=== PATIENT | female | born 1990 | race Caucasian/White ===

== ENCOUNTER 2016-06-21 16:11 | Emergency (ER) | payer OTHER ==
[2016-06-21 16:17] VITALS: BP 122/65; PULSE 79; TEMP 98.2; BMI 28.3
[2016-06-21 19:28] LABS: URINE APPEARANCE CLEAR; URINE BILIRUBIN NEGATIVE (NEGATIVE); URINE BLOOD NEGATIVE (NEGATIVE); URINE COLOR YELLOW; URINE GLUCOSE (UA) NEGATIVE (NEGATIVE); URINE KETONE NEGATIVE (NEGATIVE); URINE LEUK ESTERASE NEGATIVE (NEGATIVE); URINE NITRITE NEGATIVE (NEGATIVE); URINE PROTEIN NEGATIVE (NEGATIVE); URINE UROBILINOGEN NEGATIVE E.U./dl (0.2-1.0)
== END 2016-06-21 18:00 | disposition home or self-care (01) ==
LOC: JER 16:11
DX: O26.892 Other specified pregnancy related conditions, second trimester (principal); Z3A.22 22 weeks gestation of pregnancy
CPT/HCPCS: 81003; 99281-25

== ENCOUNTER 2016-09-09 17:02 | Emergency (ER) | payer OTHER ==
[2016-09-09 17:10] VITALS: BMI 34.1
[2016-09-09 17:40] VITALS: PULSE 88; TEMP 98.4
[2016-09-09 17:42] VITALS: BP 126/67
[2016-09-09 18:54] LABS: BASOPHIL 0.3 % (0-2.0); EOSINOPHIL 1.7 % (0-4.5); MCH 30.4 pg (25.7-33.7); MCHC 33.3 g/dl (32.0-36.0); MEAN CELL VOLUME 91.2 fl (80-96); MEAN PLT VOLUME 8.4 fl (7.5-11.1); PLATELET COUNT 223 K/MM3 (134-434); RDW 12.4 % (11.6-15.6); WHITE BLOOD COUNT 7.9 K/mm3 (4.0-10.0)
--- NOTE | 2016-09-09 18:58 | PDOC ---
History of Present Illness <Davey Blake - Last Filed: 09/09/16 18:58> - General History Source: Patient Exam Limitations: No Limitations - History of Present Illness Initial Comments: 09/09/16 18:58 The patient is a 26 year old female , 8 months , who arrives to the ED from L&D for RUQ pain. The patient explains that she has been experiencing worsening pain for the past week. She notes one episode of vomiting as well which was nonbloody and nonbilious. The patient states that she has been keeping a relatively healthy diet, eating mostly salads with grilled chicken. She denies any recent fevers, chills, diarrhea, constipation, melena, hematochezia, chest pain, shortness of breath, cough, or urinary symptoms. <Crissy Thurman - Last Filed: 09/09/16 18:58> <Suki Goodrich - Last Filed: 09/09/16 22:14> - General Chief Complaint: Labor Assessment Stated Complaint: PAIN UNDER BREAST Time Seen by Provider: 09/09/16 18:37 Past History - Past Medical History Other medical history: NONE - Psycho/Social/Smoking Cessation Hx Anxiety: No Suicidal Ideation: No Smoking Status: No Smoking History: Never smoked Number of Cigarettes Smoked Daily: 0 Hx Alcohol Use: No Drug/Substance Use Hx: No Substance Use Type: None <Davey Blake - Last Filed: 09/09/16 18:58> <Crissy Thurman - Last Filed: 09/09/16 18:58> <Suki Goodrich - Last Filed: 09/09/16 22:14> - Past Medical History Allergies/Adverse Reactions: Allergies Allergy/AdvReac Type Severity Reaction Status Date / Time No Known Allergies Allergy Verified 09/09/16 17:10 Home Medications: Ambulatory Orders Vit Calc,Iron,Folic [ Vitamins] 1 each PO DAILY 09/09/16 Review of Systems - Review of Systems Able to Perform ROS?: Yes Comments:: 09/09/16 18:58 GENERAL/CONSTITUTIONAL: No fever or chills. No weakness. HEAD, EYES, EARS, NOSE AND THROAT: No change in vision. No ear pain or discharge. No sore throat. CARDIOVASCULAR: No chest pain or shortness of breath. RESPIRATORY: No cough, wheezing, or hemoptysis. GASTROINTESTINAL: Present: RUQ pain, nausea, vomiting No diarrhea or constipation. GENITOURINARY: No dysuria, frequency, or change in urination. MUSCULOSKELETAL: No joint or muscle swelling or pain. No neck or back pain. SKIN: No rash NEUROLOGIC: No headache, vertigo, loss of consciousness, or change in strength/ sensation. ENDOCRINE: No increased thirst. No abnormal weight change. HEMATOLOGIC/LYMPHATIC: No anemia, easy bleeding, or history of blood clots. ALLERGIC/IMMUNOLOGIC: No hives or skin allergy. All Other Systems: Reviewed and Negative <Crissy Thurman - Last Filed: 09/09/16 18:58> *Physical Exam - Vital Signs Last Vital Signs Temp Pulse Resp BP Pulse Ox 98.4 F 88 20 126/67 99 09/09/16 17:35 09/09/16 17:35 09/09/16 17:35 09/09/16 17:35 09/09/16 17:06 <Davey Blake - Last Filed: 09/09/16 18:58> - Vital Signs Last Vital Signs Temp Pulse Resp BP Pulse Ox 98.4 F 88 20 126/67 99 09/09/16 17:35 09/09/16 17:35 09/09/16 17:35 09/09/16 17:35 09/09/16 17:06 - Physical Exam Comments: 09/09/16 18:59 GENERAL: Awake, alert, and fully oriented, in no acute distress HEAD: No signs of trauma EYES: PERRLA, EOMI, sclera anicteric, conjunctiva clear ENT: Auricles normal inspection, hearing grossly normal, nares patent, oropharynx clear without exudates. Moist mucosa NECK: Normal ROM, supple, no lymphadenopathy, JVD, or masses LUNGS: Breath sounds equal, clear to auscultation bilaterally. No wheezes, and no crackles HEART: Regular rate and rhythm, normal S1 and S2, no murmurs, rubs or gallops ABDOMEN: Positive Alicea's sign. Soft, nontender, normoactive bowel sounds. No guarding, no rebound. No masses EXTREMITIES: Normal range of motion, no edema. No clubbing or cyanosis. No cords, erythema, or tenderness NEUROLOGICAL: Cranial nerves II through XII grossly intact. Normal speech, normal gait SKIN: Warm, Dry, normal turgor, no rashes or lesions noted. <[email or web address] - Last Filed: 09/09/16 18:58> - Vital Signs Last Vital Signs Temp Pulse Resp BP Pulse Ox 98.4 F 88 20 126/67 99 09/09/16 17:35 09/09/16 17:35 09/09/16 17:35 09/09/16 17:35 09/09/16 17:06 <Suki Goodrich - Last Filed: 09/09/16 22:14> ED Treatment Course - LABORATORY CBC & Chemistry Diagram: 09/09/16 16:57 09/09/16 16:57 - RADIOLOGY Radiology Studies Ordered: Category Date Time Status GALLBLADDER US [US] Stat Ultrasound 09/09/16 18:32 Ordered <Davey Blake - Last Filed: 09/09/16 18:58> - LABORATORY CBC & Chemistry Diagram: 09/09/16 16:57 09/09/16 16:57 <Crissy Thurman - Last Filed: 09/09/16 18:58> - LABORATORY CBC & Chemistry Diagram: 09/09/16 16:57 09/09/16 16:57 - ADDITIONAL ORDERS Additional order review: Laboratory Results 09/09/16 09/09/16 09/09/16 19:10 16:57 16:57 INR 1.03 Sodium 139 Potassium 4.3 Chloride 106 Carbon Dioxide 25 Anion Gap 8 BUN 8 Creatinine 0.7 Creat Clearance w eGFR > 60 Random Glucose 93 Calcium 8.8 Total Bilirubin 0.6 AST 16 ALT 19 Alkaline Phosphatase 130 H Total Protein 6.5 Albumin 2.9 L Lipase 169 Urine Color Yellow Urine Appearance Slcloudy Urine pH 6.0 Ur Specific [place] 1.025 Urine Protein Negative Urine Glucose (UA) Negative Urine Ketones Negative Urine Blood Negative Urine Nitrite Negative Urine Bilirubin Negative Urine Urobilinogen Negative Ur Leukocyte Esterase Trace H Urine RBC 1 Urine WBC 6 Ur Epithelial Cells Few Urine Bacteria Rare Urine Mucus Rare Urine Yeast Rare 09/09/16 16:57 RBC 3.69 MCV 91.2 MCHC 33.3 RDW 12.4 MPV 8.4 Neutrophils % 67.0 Lymphocytes % 21.0 Monocytes % 10.0 Eosinophils % 1.7 Basophils % 0.3 <Suki Goodrich - Last Filed: 09/09/16 22:14> Medical Decision Making - Medical Decision Making 09/09/16 22:13 Patient Name: Iraida Sharp THIS IS A PRELIMINARY REPORT FROM [facility]. EXAM: GALLBLADDER US DATE OF SERVICE: 2016-09-09 19:18:41.0 IMAGES: 40 INDICATION: Biliary colic. COMPARISON: None Limited study due to body habitus and increased bowel gas. Patient is reported to be 34 weeks . Ultrasound not performed. Liver is normal sized and homogeneous. Normal main portal vein. Contracted gallbladder without gallstone or bile duct dilatation. Normal common bile duct measuring 3.4 mm diameter. Right kidney unremarkable. The head and the body of pancreas unremarkable. IVC is patent. No ascites. THIS DOCUMENT HAS BEEN ELECTRONICALLY SIGNED <Suki Goodrich - Last Filed: 09/09/16 22:14> *DC/Admit/Observation/Transfer - Attestations Physician Attestion: 09/09/16 18:58 I, Dr. Davey Blake, attest that this document has been prepared under my direction and personally reviewed by me in its entirety. I further attest, that it accurately reflects all work, treatment, procedures and medical decision -making performed by me. <Davey Blake - Last Filed: 09/09/16 18:58> - Attestations Scribe Attestion: 09/09/16 19:00 Documentation prepared by Crissy Thurman, acting as biomedical technician for Davey Blake DO. <Crissy Thurman - Last Filed: 09/09/16 18:58> - Discharge Dispostion Admit: No <Suki Goodrich - Last Filed: 09/09/16 22:14> Diagnosis at time of Disposition: Abdominal pain - Discharge Dispostion Disposition: HOME Condition at time of disposition: Stable - Patient Instructions Printed Discharge Instructions: DI for Abdominal Pain-Adult Additional Instructions: RETURN TO EMERGENCY DEPT. 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 IF YOU WISH TO TRANSFER CARE TO [facility], CALL FOR APPOINTMENT AND ARRANGE TO HAVE YOUR CHART SENT. TELEPHONE NUMBER IS [phone]
[2016-09-09 19:07] LABS: INR 1.03 (0.82-1.09); PROTHROMBIN TIME (PATIENT) 11.3 SEC (9.98-11.88)
[2016-09-09 19:22] LABS: ALBUMIN 2.9 g/dl (3.4-5.0); ALK PHOS 130 U/L (45-117); ANION GAP 8 (8-16); BILIRUBIN,TOTAL 0.6 mg/dL (0.2-1.0); CALCIUM 8.8 mg/dL (8.5-10.1); CO2 25 mmol/L (21-32); CREATININE 0.7 mg/dL (0.55-1.02); GLUCOSE,RANDOM 93 mg/dL (74-106); SGOT/AST 16 U/L (15-37); SGPT/ALT 19 U/L (12-78); TOT PROT 6.5 g/dl (6.4-8.2)
[2016-09-09 19:35] LABS: URINE APPEARANCE SLCLOUDY; URINE BILIRUBIN NEGATIVE (NEGATIVE); URINE BLOOD NEGATIVE (NEGATIVE); URINE COLOR YELLOW; URINE GLUCOSE (UA) NEGATIVE (NEGATIVE); URINE KETONE NEGATIVE (NEGATIVE); URINE NITRITE NEGATIVE (NEGATIVE); URINE PROTEIN NEGATIVE (NEGATIVE); URINE UROBILINOGEN NEGATIVE E.U./dl (0.2-1.0)
[2016-09-09 19:50] LABS: URINE LEUK ESTERASE TRACE (NEGATIVE)
[2016-09-09 19:57] LABS: URINE BACTERIA RARE /hpf (NONE SEEN); URINE MUCUS RARE; URINE RBC 1 /hpf (0-3); URINE WBC 6 /hpf (3-5); YEAST RARE
== END 2016-09-09 22:57 | disposition home or self-care (01) ==
LOC: JER 17:02
DX: O26.893 Other specified pregnancy related conditions, third trimester (principal); R10.11 Right upper quadrant pain; Z3A.34 34 weeks gestation of pregnancy
CPT/HCPCS: 36415; 76705-TC; 80053; 81003; 81015; 83690; 85025; 85610; 99282-25

== ENCOUNTER 2016-09-17 18:21 | Emergency (ER) | payer OTHER ==
[2016-09-17 18:28] VITALS: BMI 31.5
[2016-09-17 20:43] VITALS: BP 109/79; PULSE 93; TEMP 99.3
== END 2016-09-17 20:50 | disposition home or self-care (01) ==
LOC: JER 18:21
DX: O26.853 Spotting complicating pregnancy, third trimester (principal); Z3A.34 34 weeks gestation of pregnancy
CPT/HCPCS: 99281-25

== ENCOUNTER 2016-10-15 07:00 | Inpatient (IN) | payer OTHER ==
[2016-10-15 08:35] VITALS: BMI 36.1
[2016-10-15] MEDS ORDERED: DEXTROSE 5%-LACTATED RINGERS 1,000 ML IV ONE (09:00)
[2016-10-15 09:19] LABS: BASOPHIL 0.4 % (0-2.0); EOSINOPHIL 0.1 % (0-4.5); MCH 30.5 pg (25.7-33.7); MCHC 33.9 g/dl (32.0-36.0); MEAN CELL VOLUME 90.1 fl (80-96); NEUTROPHILS 63.1 % (42.8-82.8); PLATELET COUNT 213 K/MM3 (134-434); RDW 13.4 % (11.6-15.6); WHITE BLOOD COUNT 5.9 K/mm3 (4.0-10.0)
[2016-10-15 09:42] LABS: INR 0.95 (0.82-1.09); PROTHROMBIN TIME (PATIENT) 10.4 SEC (9.98-11.88)
[2016-10-15 09:45] LABS: ACTIVATED PTT 29.8 SECONDS (26.9-34.4)
[2016-10-15 09:53] LABS: ANION GAP 9 (8-16); CO2 23 mmol/L (21-32); CREATININE 0.6 mg/dL (0.55-1.02); GLUCOSE,RANDOM 71 mg/dL (74-106)
--- NOTE | 2016-10-15 14:50 | HP ---
Past Medical History - Primary Care Physician PCP:: Miguel Cee - Admission Chief Complaint: 38 weeks, prom, History of Present Illness: 26 yo g 2 p0100 edc by by rhonda 10/24/16 c/o rom since 6 am today, clear, no fever , no chills, mild cramps. no bleeding History Source: Patient Limitations to Obtaining History: No Limitations - Past Medical History ...: 2 ...Para: 1 ...Term: 0 ...: 0 ...Spon : 0 ...Induced : 0 ...Multiple Gestation: 0 ...LMP: 01/19/17 ...EDC by Dates: 10/26/16 ...EDC by [facility]: 10/24/16 Additional OB History: one spont ab - Past Surgical History Hx Myomectomy: No Hx Transabdominal Cerclage: No - Smoking History Smoking history: Never smoked Have you smoked in the past 12 months: No Aproximately how many cigarettes per day: 0 - Alcohol/Substance Use Hx Alcohol Use: No - Social History Usual Living Arrangement: Yes: With Spouse History of Recent Travel: No Home Medications - Allergies Allergies/Adverse Reactions: Allergies Allergy/AdvReac Type Severity Reaction Status Date / Time No Known Allergies Allergy Verified 10/15/16 08:16 - Home Medications Home Medications: Ambulatory Orders Vit Calc,Iron,Folic [ Vitamins] 1 each PO DAILY 09/09/16 Review of Systems - Review of Systems Constitutional: reports: No Symptoms Eyes: reports: No Symptoms HENT: reports: No Symptoms Neck: reports: No Symptoms Cardiovascular: reports: No Symptoms Respiratory: reports: No Symptoms Gastrointestinal: reports: No Symptoms Genitourinary: reports: No Symptoms Breasts: reports: No Symptoms Reported Musculoskeletal: reports: No Symptoms Integumentary: reports: No Symptoms Neurological: reports: No Symptoms Endocrine: reports: No Symptoms Hematology/Lymphatic: reports: No Symptoms Psychiatric: reports: No Symptoms Physical Exam - Maternity Vital Signs: Vital Signs Temperature 98.2 F 10/15/16 13:00 Pulse Rate 87 10/15/16 13:00 Respiratory Rate 20 10/15/16 13:00 Blood Pressure 115/61 10/15/16 13:00 O2 Sat by Pulse Oximetry (%) Constitutional: Yes: Well Nourished, No Distress, Calm Eyes: Yes: WNL, Conjunctiva Clear, EOM Intact HENT: Yes: WNL, Atraumatic, Normocephalic Neck: Yes: WNL, Supple, Trachea Midline Cardiovascular: Yes: WNL, Regular Rate and Rhythm Breast(s): Yes: WNL - Abdominal Exam/OB Fundal Height: 38 Number of Fetuses: Single Presentation: Vertex Contractions: Yes Regularity: Irregular Intensity: Moderate Monitor Mode: External Heart Rate Location: [facility] Category: I Accelerations: Uniform Decelerations: None - Vaginal Exam/OB Speculum Exam: Yes Dilatation (cm): 1 cm Effacement (%): 50 Amniotic Membrane Status: Ruptured Nitrazine Test: Positive Amniotic Fluid: Yes: Clear Station: -2 - Physical Exam Musculoskeletal: Yes: Back Pain Edema: LLE: Trace, RLE: Trace Deep Tendon Reflex Grade: Normal +2 - Labs Lab Results: CBC, BMP 10/15/16 08:40 10/15/16 08:40 Hemorrhage Risk Assessment - Risk Factors Risk Score: 0 Risk Level: Low Risk Problem List - Problems (1) with 38 completed weeks gestation Code(s): Z3A.38 - 38 WEEKS GESTATION OF (2) Ruptured, membranes, premature Code(s): O42.90 - ESTHELA ROM, 7TH0 BETW RUPT & ONST LABR, UNSP WEEKS OF GEST Qualifiers: PROM gestational age: full term Assessment/Plan admit, fhm, GBS negative, expectant management, appear starting labor spontaneous
--- NOTE | 2016-10-15 14:51 | PN ---
Progress Note (short form) - Note Progress Note: cx 1 to 2 cm 80 vx -2 mr, fhr cat 1, contraction q 3 min , moderate intensity Problem List - Problems (1) with 38 completed weeks gestation Code(s): Z3A.38 - 38 WEEKS GESTATION OF (2) Ruptured, membranes, premature Code(s): O42.90 - ESTHELA ROM, 7TH0 BETW RUPT & ONST LABR, UNSP WEEKS OF GEST Qualifiers: PROM gestational age: full term
[2016-10-15] MEDS ORDERED: PROMETHAZINE HCL 25 MG/1 ML VIAL IVPUSH ONE (15:56)
[2016-10-15] MEDS ORDERED: BUTORPHANOL TARTRATE 1 MG/ML VIAL IVPUSH PRN (15:56)
[2016-10-15] MEDS ORDERED: AMPICILLIN - 2 GM in SODIUM CHLORIDE 100 ML IVPB ONE (17:57)
[2016-10-15] MEDS ORDERED: ELECTROLYTE-148 SOLN 500 ML IV ONE ×2 (19:30→20:30)
[2016-10-15] MEDS ORDERED: AMPICILLIN - 1 GM in SODIUM CHLORIDE 100 ML IVPB SCH (20:00)
--- NOTE | 2016-10-15 21:00 | PN ---
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
[2016-10-15] MEDS ORDERED: BISACODYL 10 MG SUPP.RECT RC PRN (21:46)
[2016-10-15] MEDS ORDERED: BENZOCAINE 20% 57 GM BOTTLE TP PRN (21:46)
[2016-10-15] MEDS ORDERED: BENZOCAINE 28 GM HEMORRHOIDAL OINTMENT TP PRN (21:46)
[2016-10-15] MEDS ORDERED: WITCH HAZEL 50% (TUCKS) 40 PAD/JAR PAD TP PRN (21:46)
[2016-10-15] MEDS ORDERED: oxyCODONE HCL 5 MG TABLET PO PRN (21:46)
[2016-10-15] MEDS ORDERED: IBUPROFEN 600 MG TABLET (FP) PO PRN (21:46)
[2016-10-15] MEDS ORDERED: METHYLERGONOVINE MALEATE 0.2 MG/1 ML AMP IM PRN (21:46)
[2016-10-15] MEDS ORDERED: ACETAMINOPHEN 325 MG TABLET (FP) PO PRN (21:46)
[2016-10-15] MEDS ORDERED: D5W-LR W/ 20 UNITS OXYTOCIN 1,000 ML IV SCH (22:00)
[2016-10-15] MEDS: FERROUS SO4 325 MG TABLET (FP) PO SCH (23:30)
--- NOTE | 2016-10-16 06:00 | PN ---
Progress Note (short form) - Note Progress Note: ppd 1 doing well, no c/o no excess vaginal bleeding CBC, BMP 10/15/16 08:40 10/15/16 08:40 Last Vital Signs Temp Pulse Resp BP Pulse Ox 98.3 F 76 18 122/71 100 10/16/16 02:00 10/16/16 02:00 10/16/16 02:00 10/16/16 02:00 10/15/16 21:35 abdomen soft, no distension, no cva uterus firm, non tender lochia mild CBC, BMP 10/15/16 08:40 10/15/16 08:40 plan cbc today, ambualte d/c home in am Problem List - Problems (1) with 38 completed weeks gestation Code(s): Z3A.38 - 38 WEEKS GESTATION OF (2) Ruptured, membranes, premature Code(s): O42.90 - ESTHELA ROM, 7TH0 BETW RUPT & ONST LABR, UNSP WEEKS OF GEST Qualifiers: PROM gestational age: full term
[2016-10-16 07:33] LABS: BASOPHIL 0.1 % (0-2.0); MCH 30.6 pg (25.7-33.7); MCHC 34.3 g/dl (32.0-36.0); MEAN CELL VOLUME 89.2 fl (80-96); NEUTROPHILS 70.5 % (42.8-82.8); PLATELET COUNT 173 K/MM3 (134-434); RDW 13.2 % (11.6-15.6); WHITE BLOOD COUNT 9.2 K/mm3 (4.0-10.0)
[2016-10-16] MEDS: FERROUS SO4 325 MG TABLET (FP) PO SCH ×2 (09:21→21:45)
[2016-10-16] MEDS: PRENATAL VITAMINS W/ FOLIC ACID TABLET (FP) PO SCH (09:22)
[2016-10-16] MEDS ORDERED: SENNOSIDES/DOCUSATE COMBO (SENNA PLUS) TABLET (UD) PO PRN (22:00)
[2016-10-17 08:41] VITALS: BP 137/83; PULSE 93; TEMP 98
[2016-10-17] MEDS: PRENATAL VITAMINS W/ FOLIC ACID TABLET (FP) PO SCH (09:12)
[2016-10-17] MEDS: FERROUS SO4 325 MG TABLET (FP) PO SCH (09:12)
--- NOTE | 2016-10-17 09:37 | PN ---
Post Progress Note - Subjective Subjective: c/o cramps Post Day: 2 Type of Delivery: Vital Signs: Vital Signs Temperature 98 F 10/17/16 08:39 Pulse Rate 93 H 10/17/16 08:39 Respiratory Rate 20 10/17/16 08:39 Blood Pressure 137/83 10/17/16 08:39 O2 Sat by Pulse Oximetry (%) 100 10/15/16 21:35 Breast Exam: Yes: Soft. No: Engorged Uterus: Yes: Fundus Firm, Fundus below umbilicus, Non-tender Lochia: Yes: Rubra Lochia, amount: Moderate Extremities: Yes: Calves non-tender Perineum: Yes: Intact, Laceration Activity: Ambulating - Labs Labs: CBC WBC 9.2 K/mm3 (4.0-10.0) D 10/16/16 06:40 RBC 3.27 M/mm3 (3.60-5.2) L 10/16/16 06:40 Hgb 10.0 GM/dL (10.7-15.3) L D 10/16/16 06:40 Hct 29.2 % (32.4-45.2) L D 10/16/16 06:40 MCV 89.2 fl (80-96) 10/16/16 06:40 MCH 30.6 pg (25.7-33.7) 10/16/16 06:40 MCHC 34.3 g/dl (32.0-36.0) 10/16/16 06:40 RDW 13.2 % (11.6-15.6) 10/16/16 06:40 Plt Count 173 K/MM3 (134-434) 10/16/16 06:40 MPV 9.0 fl (7.5-11.1) 10/16/16 06:40 Neutrophils % 70.5 % (42.8-82.8) 10/16/16 06:40 Lymphocytes % 18.0 % (8-40) D 10/16/16 06:40 Monocytes % 11.4 % (3.8-10.2) H 10/16/16 06:40 Eosinophils % 0.0 % (0-4.5) D 10/16/16 06:40 Basophils % 0.1 % (0-2.0) 10/16/16 06:40 Assessment/Plan stable plan discharge today
--- NOTE | 2016-10-18 21:07 | DS ---
Physical Exam-PROGRAM ELIGIBILITY SPECIALIST Vital Signs: Vital Signs Temperature 98 F 10/17/16 08:39 Pulse Rate 93 H 10/17/16 08:39 Respiratory Rate 20 10/17/16 08:39 Blood Pressure 137/83 10/17/16 08:39 O2 Sat by Pulse Oximetry (%) 100 10/15/16 21:35 Constitutional: Yes: Well Nourished, No Distress, Calm Eyes: Yes: WNL, Conjunctiva Clear, EOM Intact HENT: Yes: WNL, Atraumatic, Normocephalic Neck: Yes: WNL, Supple, Trachea Midline Cardiovascular: Yes: WNL, Regular Rate and Rhythm Respiratory: Yes: WNL, Regular, CTA Bilaterally Gastrointestinal: Yes: WNL ...Rectal Exam: Yes: WNL Renal/: Yes: WNL ....Post : Yes: Uterus firm, Uterus non-tender, Slight lochia rubra Breast(s): Yes: WNL Musculoskeletal: Yes: WNL Extremities: Yes: WNL Edema: No Integumentary: Yes: WNL Wound/Incision: Yes: Clean/Dry, Well Approximated, [place] Intact Neurological: Yes: WNL, Alert, Oriented ...Motor Strength: WNL Psychiatric: Yes: WNL, Alert, Oriented Labs: CBC, BMP 10/16/16 06:40 10/15/16 08:40 Delivery - Delivery Vaginal Delivery: No Problems, Spontaneous (no complication) Type of Anesthesia: Local, None Episiotomy/Laceration: None, Periurethral Extnsion/lac, 1st degree EBL (cc): 300 Delivery, Single - Stages of Labor Date 1st Stage Initiatied: 10/15/16 Time 1st Stage Initiated: 19:00 Date 2nd Stage Initiated: 10/15/16 Time 2nd Stage Initiated: 20:10 Date of Delivery: 10/15/16 Time of Delivery: 20:32 Time Placenta Delivered: 20:35 Placenta: Yes: Spontaneous - 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 Referrals: Miguel Cee MD [Staff Physician] - Disposition: HOME - Home Medications Comprehensive Discharge Medication List: Ambulatory Orders Vit Calc,Iron,Folic [ Vitamins] 1 each PO DAILY 09/09/16 Acetaminophen [Tylenol .Regular Strength -] 650 mg PO Q3H PRN #0 tablet Ferrous Sulfate [Feosol] 325 mg PO BID tab 10/17/16 Ibuprofen [Motrin -] 200 mg PO Q4H PRN #0 tablet 10/17/16 Vitamins (Sjr) - 1 tab PO DAILY tablet 10/17/16
== END 2016-10-17 11:55 | disposition home or self-care (01) | DRG 560 ==
LOC: JLDR 07:00 → J3W 22:55
PROVIDERS: ADMIT Obstetrics & Gynecology; ATTEND Obstetrics & Gynecology
PROC: 10E0XZZ Delivery of Products of Conception, External Approach (ICD-10-PCS; principal; 2016-10-15)
PROC: 0HQ9XZZ Repair Perineum Skin, External Approach (ICD-10-PCS; 2016-10-15)
DX: O42.92 Full-term premature rupture of membranes, unspecified as to length of time between rupture and onset of labor (principal); O70.0 First degree perineal laceration during delivery; O69.81X0 Labor and delivery complicated by cord around neck, without compression, not applicable or unspecified; Z3A.38 38 weeks gestation of pregnancy; Z37.0 Single live birth
CPT/HCPCS: 36415; 59409; 80048; 85025; 85610; 85730; 86593; 86850; 86900; 86901

== ENCOUNTER 2020-06-19 14:44 | Emergency (ER) | payer OTHER ==
[2020-06-19 15:10] VITALS: BP 120/77; PULSE 80; TEMP 99.6; BMI 40.8
[2020-06-19 16:09] LABS: BASO % 0.9 % (0-2.0); HEMATOCRIT 42.3 % (32.4-45.2); HEMOGLOBIN 14.3 GM/dL (10.7-15.3); LYMPH % 28.7 % (8-40); MCH 31.5 pg (25.7-33.7); MCHC 33.7 g/dl (32.0-36.0); MEAN CELL VOLUME 93.4 fl (80-96); MEAN PLT VOLUME 8.1 fl (7.5-11.1); NEUT % 60.4 % (42.8-82.8); PLATELET COUNT 298 K/MM3 (134-434); RBC 4.53 M/mm3 (3.60-5.2); RDW 13.3 % (11.6-15.6); WHITE BLOOD COUNT 11.8 K/mm3 (4.0-10.0)
[2020-06-19 16:30] LABS: CALCIUM 9.7 mg/dL (8.5-10.1)
[2020-06-19 16:31] LABS: ALBUMIN 3.9 g/dl (3.4-5.0); BLOOD UREA NITROGEN 12.5 mg/dL (7-18)
[2020-06-19 16:35] LABS: CREATININE 0.9 mg/dL (0.55-1.3)
[2020-06-19 16:37] LABS: BILIRUBIN,TOTAL 0.6 mg/dL (0.2-1); TOT PROT 8.2 g/dl (6.4-8.2)
[2020-06-19 17:55] LABS: EPI CELLS 18 /uL (0-25.1); HYALINE CASTS 1 /uL (0-3.1); URINE APPEARANCE CLEAR; URINE BACTERIA 46 /uL (0-1359); URINE BILIRUBIN NEGATIVE (NEGATIVE); URINE COLOR YELLOW; URINE GLUCOSE (UA) NEGATIVE (NEGATIVE); URINE KETONE NEGATIVE (NEGATIVE); URINE LEUK ESTERASE NEGATIVE (NEGATIVE); URINE NITRITE NEGATIVE (NEGATIVE); URINE PROTEIN NEGATIVE (NEGATIVE); URINE RBC 4 /uL (0-23.9); URINE UROBILINOGEN 0.2 mg/dL (0.2-1.0); URINE WBC 1 /uL (0-25.8)
== END 2020-06-19 18:20 | disposition home or self-care (01) ==
LOC: JER 14:44
DX: O20.8 Other hemorrhage in early pregnancy (principal)
CPT/HCPCS: 36415; 76817-TC; 80053; 81003; 84702; 85025; 87086; 99284-25

== ENCOUNTER 2020-06-21 18:26 | Emergency (ER) | payer OTHER ==
[2020-06-21 18:35] VITALS: BP 101/58; PULSE 87; TEMP 97.7; BMI 41.0
[2020-06-21 19:38] LABS: BASO % 0.8 % (0-2.0); EOS % 2.5 % (0-4.5); HEMATOCRIT 39.9 % (32.4-45.2); HEMOGLOBIN 13.4 GM/dL (10.7-15.3); MCH 31.8 pg (25.7-33.7); MCHC 33.6 g/dl (32.0-36.0); MEAN CELL VOLUME 94.4 fl (80-96); MEAN PLT VOLUME 8.1 fl (7.5-11.1); MONO % 7.7 % (3.8-10.2); PLATELET COUNT 273 K/MM3 (134-434); RBC 4.23 M/mm3 (3.60-5.2); RDW 13.2 % (11.6-15.6); WHITE BLOOD COUNT 10.9 K/mm3 (4.0-10.0)
== END 2020-06-21 21:14 | disposition home or self-care (01) ==
LOC: JER 18:26
DX: O20.0 Threatened abortion (principal)
CPT/HCPCS: 36415; 76817-TC; 84702; 85025; 99284-25

== ENCOUNTER 2020-07-21 20:01 | Emergency (ER) | payer OTHER ==
[2020-07-21 20:29] VITALS: BP 122/78; PULSE 84; TEMP 98.3; BMI 40.8
[2020-07-21] MEDS ORDERED: LORATADINE 10 MG TABLET PO ONE (21:04)
[2020-07-21] MEDS ORDERED: DEXAMETHASONE SOD PHOSPHATE 10 MG/1 ML VIAL IM ONE (21:04)
[2020-07-21] MEDS ORDERED: DEXAMETHASONE SOD PHOSPHATE 10 MG/1 ML VIAL ONE (21:08)
[2020-07-21] MEDS ORDERED: ALBUTEROL SO4 2.5/IPRATROPIUM 0.5 INH SOL 3 ML VIAL.NEB. NEB ONE (21:08)
[2020-07-21] MEDS ORDERED: LORATADINE 10 MG TABLET ONE (21:08)
[2020-07-21] MEDS ORDERED: ALBUTEROL SO4 2.5/IPRATROPIUM 0.5 INH SOL 3 ML VIAL.NEB. NEB SCH (21:15)
[2020-07-21] MEDS ORDERED: ALBUTEROL SO4 HFA INHALER IH ONE ×2 (22:24→22:33)
== END 2020-07-21 22:38 | disposition home or self-care (01) ==
LOC: JER 20:01
PROC: 3E0233Z Introduction of Anti-inflammatory into Muscle, Percutaneous Approach (ICD-10-PCS; principal; 2020-07-21)
PROC: 3E0F7GC Introduction of Other Therapeutic Substance into Respiratory Tract, Via Natural or Artificial Opening (ICD-10-PCS; 2020-07-21)
DX: J45.41 Moderate persistent asthma with (acute) exacerbation (principal)
CPT/HCPCS: 71046-TC-FY; 99285-25; C9803; J1100; U0003; U0005

== ENCOUNTER 2020-09-30 18:26 | Emergency (ER) | payer OTHER ==
[2020-09-30 18:40] VITALS: TEMP 98.6; BMI 90.1
[2020-09-30 20:48] LABS: BASO % 0.6 % (0-2.0); HEMATOCRIT 40.8 % (32.4-45.2); LYMPH % 26.2 % (8-40); MCH 31.8 pg (25.7-33.7); MCHC 34.3 g/dl (32.0-36.0); MEAN CELL VOLUME 92.6 fl (80-96); MEAN PLT VOLUME 7.9 fl (7.5-11.1); MONO % 8.3 % (3.8-10.2); NEUT % 62.9 % (42.8-82.8); PLATELET COUNT 309 10^3/uL (134-434); RBC 4.41 M/mm3 (3.60-5.2); RDW 12.9 % (11.6-15.6); WHITE BLOOD COUNT 11.7 K/mm3 (4.0-10.0)
[2020-09-30 21:02] LABS: ALBUMIN 3.8 g/dl (3.4-5.0)
[2020-09-30 21:05] LABS: CREATININE 0.8 mg/dL (0.55-1.3)
[2020-09-30 21:07] LABS: BILIRUBIN,TOTAL 0.6 mg/dL (0.2-1); TOT PROT 7.8 g/dl (6.4-8.2)
[2020-09-30 21:54] LABS: EPI CELLS 19 /uL (0-25.1); HYALINE CASTS 1 /uL (0-3.1); PH,URINE 5.5 (5.0-8.0); URINE APPEARANCE CLEAR; URINE BACTERIA 139 /uL (0-1359); URINE BILIRUBIN NEGATIVE (NEGATIVE); URINE COLOR YELLOW; URINE GLUCOSE (UA) NEGATIVE (NEGATIVE); URINE KETONE NEGATIVE (NEGATIVE); URINE LEUK ESTERASE NEGATIVE (NEGATIVE); URINE NITRITE NEGATIVE (NEGATIVE); URINE PROTEIN NEGATIVE (NEGATIVE); URINE RBC 327 /uL (0-23.9)
[2020-09-30 23:12] LABS: URINE WBC 89.6 /uL (0-25.8)
[2020-09-30 23:29] VITALS: BP 137/79; PULSE 81
== END 2020-09-30 22:45 | disposition home or self-care (01) ==
LOC: JER 18:26
DX: O26.891 Other specified pregnancy related conditions, first trimester (principal); R10.9 Unspecified abdominal pain; Z3A.01 Less than 8 weeks gestation of pregnancy
CPT/HCPCS: 36415; 76801-TC; 80053; 81003; 84702; 84703; 85025; 86850; 86900; 86901; 87086; 99284-25

== ENCOUNTER 2020-10-14 18:34 | Emergency (ER) | payer OTHER ==
[2020-10-14 19:01] VITALS: BP 128/62; PULSE 88; TEMP 98.3; BMI 42.7
== END 2020-10-14 21:31 | disposition home or self-care (01) ==
LOC: JER 18:34 → JERFT 18:34
DX: O26.851 Spotting complicating pregnancy, first trimester (principal); Z3A.01 Less than 8 weeks gestation of pregnancy
CPT/HCPCS: 36415; 76817-TC; 84702; 99284-25

== ENCOUNTER 2021-04-17 18:35 | Emergency (ER) | payer OTHER ==
[2021-04-17 18:51] VITALS: BMI 45.1
[2021-04-17] MEDS ORDERED: METOCLOPRAMIDE HCL INJECTION 10 MG/2 ML VIAL IVPB ONE (23:05)
[2021-04-17] MEDS ORDERED: ACETAMINOPHEN 1000 MG/100 ML BAG IVPB ONE (23:05)
[2021-04-17] MEDS ORDERED: SODIUM CHLORIDE 1,000 ML IV STA (23:07)
[2021-04-17] MEDS ORDERED: ACETAMINOPHEN INJECTION 100 ML IVPB ONE (23:09)
[2021-04-17] MEDS ORDERED: METOCLOPRAMIDE HCL INJECTION 10 MG/2 ML VIAL ONE (23:09)
[2021-04-17 23:42] LABS: BASO % 0.4 % (0-2.0); EOS % 0.9 % (0-4.5); EPI CELLS >36 /uL (0-25.1); HEMATOCRIT 36.3 % (32.4-45.2); HEMOGLOBIN 12.2 GM/dL (10.7-15.3); HYALINE CASTS 5 /uL (0-3.1); LYMPH % 23.8 % (8-40); MCHC 33.5 g/dl (32.0-36.0); MEAN CELL VOLUME 89.6 fl (80-96); MEAN PLT VOLUME 8.3 fl (7.5-11.1); MONO % 9.6 % (3.8-10.2); NEUT % 65.3 % (42.8-82.8); PLATELET COUNT 277 10^3/uL (134-434); RBC 4.05 M/mm3 (3.60-5.2); RDW 13.1 % (11.6-15.6); RETICULOCYTES 1.36 % (0.5-1.5); URINE APPEARANCE CLEAR; URINE BACTERIA 3711 /uL (0-1359); URINE BILIRUBIN 1+ (NEGATIVE); URINE COLOR DK YELLOW; URINE GLUCOSE (UA) NEGATIVE (NEGATIVE); URINE KETONE 1+ (NEGATIVE); URINE LEUK ESTERASE TRACE (NEGATIVE); URINE NITRITE NEGATIVE (NEGATIVE); URINE PROTEIN 1+ (NEGATIVE); URINE WBC 51 /uL (0-25.8); WHITE BLOOD COUNT 8.4 K/mm3 (4.0-10.0)
[2021-04-18 00:06] LABS: ALBUMIN 2.9 g/dl (3.4-5.0); BLOOD UREA NITROGEN 6.2 mg/dL (7-18); CALCIUM 8.9 mg/dL (8.5-10.1)
[2021-04-18 00:09] LABS: CREATININE 0.6 mg/dL (0.55-1.3); URIC ACID 2.8 mg/dL (2.6-7.2)
[2021-04-18 00:11] LABS: BILIRUBIN,TOTAL 0.5 mg/dL (0.2-1); TOT PROT 7.1 g/dl (6.4-8.2)
[2021-04-18 04:17] VITALS: BP 117/59; PULSE 95; TEMP 98
== END 2021-04-18 03:45 | disposition home or self-care (01) ==
LOC: JER 18:35
PROC: 3E0333Z Introduction of Anti-inflammatory into Peripheral Vein, Percutaneous Approach (ICD-10-PCS; principal; 2021-04-17)
PROC: 3E033GC Introduction of Other Therapeutic Substance into Peripheral Vein, Percutaneous Approach (ICD-10-PCS; 2021-04-17)
PROC: 3E0337Z Introduction of Electrolytic and Water Balance Substance into Peripheral Vein, Percutaneous Approach (ICD-10-PCS; 2021-04-17)
DX: O23.13 Infections of bladder in pregnancy, third trimester (principal); N30.00 Acute cystitis without hematuria; G44.209 Tension-type headache, unspecified, not intractable; Z3A.33 33 weeks gestation of pregnancy
CPT/HCPCS: 36415; 76705-TC; 80053; 81003; 82977; 83010; 83690; 84550; 85025; 85045; 99284-25

== ENCOUNTER 2021-06-12 04:35 | Inpatient (IN) | payer OTHER ==
[2021-06-12] MEDS ORDERED: PROMETHAZINE HCL 25 MG/1 ML VIAL ONE (06:08)
[2021-06-12] MEDS ORDERED: BUTORPHANOL TARTRATE 2 MG/ML VIAL ONE (06:08)
[2021-06-12] MEDS ORDERED: PROMETHAZINE HCL 25 MG/1 ML VIAL IVPUSH ONE (06:11)
[2021-06-12] MEDS ORDERED: BUTORPHANOL TARTRATE 1 MG/ML VIAL IVPB ONE (06:11)
[2021-06-12] MEDS ORDERED: AMPICILLIN - 2 GM in SODIUM CHLORIDE 100 ML IVPB ONE (06:15)
[2021-06-12] MEDS ORDERED: ELECTROLYTE-148 SOLN 1,000 ML IV SCH (06:15)
[2021-06-12 06:28] VITALS: BMI 44.4
[2021-06-12] MEDS ORDERED: FENTANYL/BUPIVACAINE/NS/PF - PCEA - 50 ML DISP.SYRIN EP ONE (08:52)
[2021-06-12] MEDS ORDERED: NALOXONE HCL 0.4 MG/ML VIAL IVPUSH PRN (08:52)
[2021-06-12] MEDS ORDERED: AMPICILLIN SODIUM 1 GM VIAL ONE (08:53)
[2021-06-12] MEDS: AMPICILLIN - 1 GM in SODIUM CHLORIDE 100 ML IVPB SCH (09:00)
[2021-06-12] MEDS: FENTANYL/BUPIVACAINE/NS/PF - PCEA - 50 ML DISP.SYRIN EP SCH (09:23)
[2021-06-12 09:30] LABS: PROTHROMBIN TIME (PATIENT) 11.5 SEC (9.7-13.0)
[2021-06-12 09:32] LABS: BASO % 0.2 % (0-2.0); HEMATOCRIT 36.2 % (32.4-45.2); HEMOGLOBIN 12.1 GM/dL (10.7-15.3); LYMPH % 11.9 % (8-40); MCH 29.5 pg (25.7-33.7); MCHC 33.5 g/dl (32.0-36.0); MEAN PLT VOLUME 8.3 fl (7.5-11.1); MONO % 4.5 % (3.8-10.2); NEUT % 83.4 % (42.8-82.8); PLATELET COUNT 256 10^3/uL (134-434); RBC 4.11 M/mm3 (3.60-5.2); RDW 13.8 % (11.6-15.6)
[2021-06-12 09:33] LABS: ACTIVATED PTT 31.2 SECONDS (25.2-36.5)
[2021-06-12] MEDS ORDERED: OXYTOCIN 20 UNITS in 0.9% NS 20 UNIT/1,000 ML INFUS.BAG IV ONE ×2 (10:50→12:42)
[2021-06-12] MEDS ORDERED: IBUPROFEN 600 MG TABLET (FP) PO PRN (11:12)
[2021-06-12] MEDS ORDERED: BENZOCAINE 28 GM HEMORRHOIDAL OINTMENT TP PRN (11:12)
[2021-06-12] MEDS ORDERED: WITCH HAZEL 50% (TUCKS) 40 PAD/JAR PAD TP PRN (11:12)
[2021-06-12] MEDS ORDERED: METHYLERGONOVINE MALEATE 0.2 MG/1 ML AMP IM PRN (11:12)
[2021-06-12] MEDS ORDERED: BENZOCAINE 20% 57 GM BOTTLE TP PRN (11:12)
[2021-06-12] MEDS ORDERED: BISACODYL 10 MG SUPP.RECT RC PRN (11:12)
[2021-06-12] MEDS ORDERED: ACETAMINOPHEN 325 MG TABLET (FP) PO PRN (11:12)
[2021-06-12] MEDS ORDERED: OXYTOCIN 20 UNITS in 0.9% NS 20 UNIT/1,000 ML INFUS.BAG IV SCH (11:15)
[2021-06-12 12:17] LABS: POC NITRAZINE NEG
[2021-06-13 07:19] LABS: BASO % 0.4 % (0-2.0); EOS % 0.4 % (0-4.5); HEMATOCRIT 33.1 % (32.4-45.2); LYMPH % 22.7 % (8-40); MCH 29.5 pg (25.7-33.7); MCHC 33.3 g/dl (32.0-36.0); MEAN CELL VOLUME 88.6 fl (80-96); MEAN PLT VOLUME 8.9 fl (7.5-11.1); MONO % 9.2 % (3.8-10.2); NEUT % 67.3 % (42.8-82.8); PLATELET COUNT 237 10^3/uL (134-434); RBC 3.73 M/mm3 (3.60-5.2); RDW 14.1 % (11.6-15.6); WHITE BLOOD COUNT 9.2 K/mm3 (4.0-10.0)
[2021-06-13] MEDS ORDERED: DIPHTH,PERTUSS(ACELL),TET 0.5 ML DISP.SYRIN IM ONE (10:00)
[2021-06-13] MEDS: PRENATAL VITAMINS W/ FOLIC ACID TABLET (FP) PO SCH (12:44)
[2021-06-13] MEDS: AMPICILLIN - 1 GM in SODIUM CHLORIDE 100 ML IVPB SCH (19:34)
[2021-06-13] MEDS: FENTANYL/BUPIVACAINE/NS/PF - PCEA - 50 ML DISP.SYRIN EP SCH (19:35)
[2021-06-13] MEDS ORDERED: SENNOSIDES/DOCUSATE COMBO (SENNA PLUS) TABLET (UD) PO PRN (22:00)
[2021-06-14 08:48] VITALS: BP 124/69; PULSE 77; TEMP 98.2
[2021-06-14] MEDS: PRENATAL VITAMINS W/ FOLIC ACID TABLET (FP) PO SCH (09:18)
== END 2021-06-14 16:15 | disposition home or self-care (01) | DRG 560 ==
LOC: JLDR 04:35 → J3W 13:20
PROVIDERS: ADMIT Obstetrics & Gynecology; ATTEND Obstetrics & Gynecology
PROC: 0HQ9XZZ Repair Perineum Skin, External Approach (ICD-10-PCS; principal; 2021-06-12)
PROC: 10E0XZZ Delivery of Products of Conception, External Approach (ICD-10-PCS; 2021-06-12)
DX: O48.0 Post-term pregnancy (principal); O70.0 First degree perineal laceration during delivery; O99.214 Obesity complicating childbirth; Z3A.40 40 weeks gestation of pregnancy; Z37.0 Single live birth
CPT/HCPCS: 36415; 59409; 80048; 83986-QW; 85025; 85610; 85730; 86780; 86850; 86900; 86901; 90715; C9803-CS; U0003; U0005